=== PATIENT | female | born 1960 | race Caucasian/White ===

== ENCOUNTER → 2025-07-16 14:54 | Outpatient (CLI) | payer OTHER, MEDICAID, SELFPAY ==
--- NOTE | 2025-07-16 14:56 | DI.MRI.S_ITS ---
PROCEDURE: MR CERVICAL SPINE WO CON INDICATIONS: Gait antalgic TECHNIQUE: Noncontrast sagittal T1 spin echo and T2 fast spin echo, sagittal STIR, foraminal oblique sagittal T2 fast spin echo, and axial gradient echo or T2 fast spin echo through the cervical spine. COMPARISON: None. FINDINGS: Image quality: Excellent. Alignment and Curvature: Grade 1 anterolisthesis of C3 on C4. Mild retrolisthesis of C4 on C5. Bone Marrow: Marrow demonstrates normal overall signal. Spinal Cord: Visualized spinal cord has normal size and signal. No cerebellar tonsillar herniation. Paraspinous Soft Tissues: No paravertebral masses. Prevertebral soft tissues are normal in thickness. C2-C3: Mild facet uncovertebral arthropathy. No central canal or neural foraminal stenosis. C3-C4: Disc desiccation and mild posterior disc osteophyte complex. Facet and uncovertebral arthropathy. Mild central canal stenosis. Severe right and mild left neural foraminal stenosis. C4-C5: Disc desiccation and posterior disc osteophyte complex. Facet and uncovertebral arthropathy. Mild central canal stenosis. Severe right and moderate left neural foraminal stenosis. C5-C6: Disc desiccation and moderate height loss. Mild posterior disc osteophyte complex. Facet and uncovertebral arthropathy. Mild central canal stenosis. Severe bilateral neural foraminal stenosis. C6-C7: Disc desiccation and posterior disc osteophyte complex. Facet and uncovertebral arthropathy. No significant central canal stenosis. Moderate bilateral neural foraminal stenosis. C7-T1: Disc desiccation and minimal posterior disc osteophyte complex. Facet and uncovertebral arthropathy. No significant central canal or neural foraminal stenosis. IMPRESSION: 1. Multilevel degenerative changes of the cervical spine as described above. 2. Mild multilevel central canal stenosis. 3. Severe neural foraminal stenosis on the right at C3-C4 and C4-C5 and bilaterally at C6-C7. Dictated by: Johnson Sauer M.D. on 07/17/2025 at 16:01 Approved by: Johnson Sauer M.D. on 07/17/2025 at 16:07
--- NOTE | 2025-07-16 14:56 | DI.MRI.S_ITS ---
PROCEDURE: MR THORACIC SPINE WO CON INDICATIONS: Gait antalgic TECHNIQUE: Noncontrast sagittal T1 spine echo and T2 fast spin echo, sagittal STIR, and T2 fast spin echo through the thoracic spine. COMPARISON: None. FINDINGS: Image quality: Excellent. Alignment and Curvature: Dextroscoliotic curvature. Bone Marrow: Marrow is of normal overall signal. No acute vertebral body compression fractures. Spinal Cord: Visualized spinal cord is normal in size and signal. Paraspinous Soft Tissues: No paravertebral masses. Miscellaneous: Multilevel disc desiccation and mild height loss. On axial images, central canal and foramina appear widely patent at all scanned levels. IMPRESSION: Mild multilevel degenerative changes without central canal or neural foraminal stenosis. Dictated by: Johnson Sauer M.D. on 07/17/2025 at 16:07 Approved by: Johnson Sauer M.D. on 07/17/2025 at 16:09
== END ==
LOC: MRI 14:56
PROVIDERS: PCP Nurse Practitioner; Referring Provider Physician Assistant; Visit Provider Physician Assistant
DX: M47.812 Spondylosis without myelopathy or radiculopathy, cervical region (principal); M48.02 Spinal stenosis, cervical region; M47.814 Spondylosis without myelopathy or radiculopathy, thoracic region; M54.50 Low back pain, unspecified; R26.89 Other abnormalities of gait and mobility; R29.2 Abnormal reflex; M21.372 Foot drop, left foot
CPT/HCPCS: 72141; 72146